=== PATIENT | female | born 1955 | race Hispanic/Latino ===

== ENCOUNTER → 2025-01-05 | Outpatient (CLI) | payer OTHER, MEDICARE ==
--- NOTE | 2025-01-06 11:50 | HMCSR ---
APPROVED REPORT EXAM: Two-dimensional and M-mode echocardiogram with Doppler and color Doppler. INDICATION ICD: I25.10 Atherosclerotic heart disease of [place] coronary artery without angina pectoris R06.09 RAO 2D Dimensions RVDd4.6 cmLVEF(%)61.0 (>50%)LVED Vol(simp.)102.0 mL IVSd0.9 (0.7-1.1cm)FS(%)33 %LVES Vol(simp.)46.0 mL LVDd4.7 (3.8-5.6cm)Ao Root(2D)3.2 (2.0-3.7cm)LVEF(%, simp.)55 % PWd0.9 (0.7-1.1cm)LVOT diam2.0 (1.8-2.4cm)LA ESV INDEX (BP)34.38 mL/m2 LVDs3.2 (2.5-4.0cm)IVC diam1.5 cm Aortic Valve AoV Vmax1.4 m/Dimas Peak GR7.7 mmHgLVOT Vmax1.1 m/s AoV VTI0.3 mAo Mean GR4.0 mmHgLVOT VTI0.28 m LOTUS (VMAX)2.6 cm2AVA (VTI) 2.6 cm2 Mitral Valve MV E Vmax70.5 cm/sDECEL Kfye589 ms MV A Tiva679.5 cm/sP 1/2 T81 ms E/A ratio0.7MVA (PHT)2.7 cm2 TDI E/E' Ddzyto87.5E/E' Lateral6.7 Pulmonary Valve PV Vmax1.1 m/sPV VTI0.23 mPV Mean GR2 mmHg PV Peak GR4.9 mmHg Tricuspid Valve TR Vmax3.0 m/sRAP (EST) 3 dyHwNEXV98.1 mmHg TR Peak GR36.1 mmHg Left Ventricle The left ventricle structure and function is normal. There is normal LV segmental wall motion. There is normal left ventricular wall thickness. LVEF is 55-60%. Grade 1 diastolic dysfunction. Right Ventricle The right ventricle is moderately dilated. The right ventricular systolic function is normal. Atria The left atrium is mildly dilated. The right atrium is mildly dilated. Aortic Valve Aortic valve is trileaflet. Aortic valve leaflets are sclerotic but open well. Trace aortic regurgita tion. There is no aortic valvular stenosis. Mitral Valve Mitral valve leaflets are mildly sclerotic but open well. Mitral regurgitation is trace. There is no mitral valve stenosis. Tricuspid Valve The tricuspid valve leaflets appear normal. There is mild tricuspid regurgitation. Right ventricular systolic pressure is estimated at 30-40 mmHg. Pulmonic Valve The pulmonic valve leaflets are thin and pliable; valve motion is normal. There is trace pulmonic td vular regurgitation. Great Vessels The aortic root is normal in size. The IVC is normal in size and collapses >50% with inspiration. Pericardium No pericardial effusion. Other Information Quality : Technically Limited Technically limited study due to body habitus. Conclusion LVEF is 55-60%. There is normal LV segmental wall motion. Grade 1 diastolic dysfunction. The right ventricle is moderately dilated. The aortic root is normal in size. No pericardial effusion.
== END | disposition home or self-care (01) ==
LOC: SHCH 15:33
PROVIDERS: ATTEND Internal Medicine Cardiovascular Disease
DX: I08.3 Combined rheumatic disorders of mitral, aortic and tricuspid valves (principal); I10 Essential (primary) hypertension; I25.10 Atherosclerotic heart disease of native coronary artery without angina pectoris; R06.09 Other forms of dyspnea
CPT/HCPCS: 93306